=== PATIENT | male | born 1980 | race Caucasian/White ===

== ENCOUNTER 2019-03-05 14:09 | Observation (INO) | payer BC ==
[2019-03-05] MEDS ORDERED: LOPERAMIDE HCL 2 MG CAPSULE PO PRN (15:00)
[2019-03-05] MEDS ORDERED: ONDANSETRON 4 MG (ODT) TAB PO PRN (15:00)
[2019-03-05] MEDS ORDERED: ACETAMINOPHEN 325 MG TABLET PO PRN (15:00)
[2019-03-05] MEDS ORDERED: DIPHENHYDRAMINE 25 MG TAB/CAP PO PRN (15:00)
[2019-03-05] MEDS ORDERED: POLYETHYL GLY 3350 17 GM/DOSE PO PRN (15:00)
[2019-03-05 15:20] LABS: Absolute Lymphocytes (CBC) 1.4 K/uL (0.7-4.9); Basophils % 0.8 % (0-1.3); Hematocrit 48.2 % (39.6-49.0); MPV 9.3 fL (7.6-11.3); RBC Red Blood Cell Count 5.38 M/uL (4.33-5.43)
[2019-03-05] MEDS: PANTOPRAZOLE 40 MG INJ IV SCH ×2 (15:28→21:45)
[2019-03-05] MEDS: HYDROMORPHONE HCL 1 MG/ML INJ IV PRN ×4 (15:29→22:42)
[2019-03-05] MEDS: NACHLORIDE 0.45% 1,000 ML IV SCH (15:45)
[2019-03-05 16:01] LABS: ALT/SGPT 59 U/L (12-78); AST/SGOT 24 U/L (15-37); Albumin 4.3 g/dL (3.4-5.0); Alkaline Phosphatase 56 U/L (45-117); BUN Blood Urea Nitrogen 10 mg/dL (7-18); Bicarbonate 31 mmol/L (21-32); Bilirubin Direct 0.2 mg/dL (0-0.2); Bilirubin Total 0.7 mg/dL (0.2-1.0); Glucose Level 95 mg/dL (74-106); Magnesium 2.1 mg/dL (1.8-2.4); Phosphorus 3.9 mg/dL (2.5-4.9); Protein, Total 7.6 g/dL (6.4-8.2); Sodium Level 142 mmol/L (136-145)
[2019-03-05 16:17] LABS: Protime INR 0.97
--- NOTE | 2019-03-05 16:55 | RAD REPORT ---
EXAM DESCRIPTION: CTAbdomen Pelvis W Contrast - 03/05/2019 4:29 pm CLINICAL HISTORY: Abdominal pain. Severe Abdomen Pain COMPARISON: <Comparisons> TECHNIQUE: Biphasic CT imaging of the abdomen and pelvis was performed with 100 ml non-ionic IV cont rast. All CT scans are performed using dose optimization technique as appropriate and may include automated exposure control or mA/KV adjustment according to patient size. FINDINGS: The lung bases are clear. The liver, spleen, pancreas, adrenal glands and kidneys are within normal limits. 16 mm benign right renal cyst. No bowel obstruction, free air, free fluid or abscess. Small fat containing umbilical hernia. The viral endix is normal. No evidence of significant lymphadenopathy. No suspicious bony findings. IMPRESSION: No acute intra-abdominal or pelvic finding.
--- NOTE | 2019-03-05 17:00 | RAD REPORT ---
EXAM DESCRIPTION: RAD - Chest Pa And Lat (2 Views) - 03/05/2019 4:43 pm CLINICAL HISTORY: Abd pain Chest pain. COMPARISON: <Comparisons> FINDINGS: The lungs are clear. The heart is normal in size. No displaced fractures. IMPRESSION: No acute or concerning finding suspected.
[2019-03-05 17:55] LABS: Urine Appearance CLOUDY; Urine Blood NEGATIVE (NEG); Urine Color YELLOW; Urine Glucose NEGATIVE (NEG); Urine Protein NEGATIVE (NEG); Urine Specific Gravity 1.015 (1.005-1.030); Urine Urobilinogen 0.2 mg/dL (0.2-1.0)
[2019-03-05 18:14] LABS: Urine Microscopic Reflex NO UMIC
[2019-03-05 18:19] LABS: Urine Bilirubin 1+ (NEG)
[2019-03-05] MEDS ORDERED: ALPRAZOLAM 0.5 MG TABLET PO PRN (20:22)
[2019-03-05] MEDS: ONDANSETRON 4 MG/2 ML VIAL IV PRN (20:32)
[2019-03-05] MEDS ORDERED: AMPHETAMINE PO SCH (21:00)
[2019-03-05] MEDS ORDERED: DEXTROAMPHETAMINE PO SCH (21:00)
[2019-03-05] MEDS ORDERED: HOME MED 1 EA UNK (Alprazolam [Xanax] 1 MG) PO SCH (21:00)
[2019-03-05] MEDS: SODIUM CHLORIDE 0.9% 10ML INJ IV SCH (21:46)
[2019-03-06] MEDS: ONDANSETRON 4 MG/2 ML VIAL IV PRN ×3 (02:34→18:09)
[2019-03-06] MEDS: HYDROMORPHONE HCL 1 MG/ML INJ IV PRN ×7 (02:34→18:06)
[2019-03-06 05:55] LABS: Basophils % 0.9 % (0-1.3); Hematocrit 43.7 % (39.6-49.0); Lymphocytes % 34.9 % (15.3-44.8); MPV 9.2 fL (7.6-11.3)
--- NOTE | 2019-03-06 08:34 | RAD REPORT ---
EXAM DESCRIPTION: US - Abdomen Exam Limited - 03/06/2019 8:02 am CLINICAL HISTORY: GALL BLADDER AND LIVER. COMPARISON: Abdomen Pelvis W Contrast dated 03/05/2019 FINDINGS: The gallbladder demonstrates no gallstones. Mild sludge is noted in the gallbladder. No pe richolecystic fluid or gallbladder wall thickening. The common bile duct is normal measuring 2 mm. The liver demonstrates diffuse fatty liver. IMPRESSION: Mild gallbladder sludge seen. No biliary dilatation. Diffuse fatty liver.
[2019-03-06 08:40] LABS: Troponin I < 0.02 ng/mL (0.0-0.045)
[2019-03-06] MEDS: PANTOPRAZOLE 40 MG INJ IV SCH ×2 (08:48→20:35)
[2019-03-06] MEDS: SODIUM CHLORIDE 0.9% 10ML INJ IV SCH ×2 (08:57→20:37)
--- NOTE | 2019-03-06 10:41 | EKG ---
Test Date: 2019-03-05 Test Time: 15:49:44 Supervisor Film Processing: ABDIFATAH MEASUREMENT RESULTS: Intervals: Rate: 79 WI: 116 QRSD: 88 QT: 340 QTc: 389 [place]: P: 20 WI: 116 QRS: 17 T: -41 INTERPRETIVE STATEMENTS: Normal sinus rhythm T wave abnormality, consider inferolateral ischemia Abnormal ECG No previous ECG available for comparison Electronically Signed On 03-06-19 10:38:30 CDT by Pedro Fagan
--- NOTE | 2019-03-06 12:47 | P.PN ---
Subjective Date of Service: 03/06/19 Chief Complaint: EPIG PAIN CONTINUES Subjective: No new changes HE SAYS PAIN IS STILL THE SAME BUT DILAUDID HELPS. HE HAS EPIG PAIN WITHOUT RADIATION. HE HAS BEEN TAKING ETODOLAC FROM DR MCDUFFIE FOR TWO WEEKS. HE HAS NO N,V OR DIARRHEA. Review of Systems 10-point ROS is otherwise unremarkable Physical Examination - Vital Signs Temperature: 97.8 F Blood Pressure: 138/91 Pulse: 79 Respirations: 18 Pulse Ox (%): 96 - Physical Exam General: Alert, In no apparent distress HEENT: Atraumatic, PERRLA, EOMI Neck: Supple, JVD not distended Respiratory: Clear to auscultation bilaterally, Normal air movement Cardiovascular: Regular rate/rhythm, Normal S1 S2 Gastrointestinal: Normal bowel sounds, Soft and benign, Tenderness (EPIG AND ON PROMPTING HE IS TENDER ON RUQ ALSO.) Musculoskeletal: No tenderness Integumentary: No rashes Neurological: Normal speech, Normal tone, Normal affect Lymphatics: No axilla or inguinal lymphadenopathy - Studies Laboratory Data (last 24 hrs) 03/06/19 08:25: Troponin I < 0.02 03/06/19 05:22: Sodium 137, Potassium 4.0, BUN 11, Creatinine 0.97, Glucose 96, Magnesium 2.0 03/06/19 05:22: WBC 5.8, Hgb 15.1, Hct 43.7, Plt Count 197 03/05/19 15:06: PT 11.5, INR 0.97, APTT 30.4 03/05/19 15:06: Sodium 142, Potassium 4.0, BUN 10, Creatinine 0.88, Glucose 95, Phosphorus 3.9, Magnesium 2.1, Total Bilirubin 0.7, AST 24, ALT 59, Alkaline Phosphatase 56, Troponin I < 0.02 03/05/19 15:06: WBC 6.0, Hgb 17.0, Hct 48.2, Plt Count 229 Medications List Reviewed: Yes Assessment And Plan - Current Problems (Diagnosis) (1) Epigastric pain Current Visit: Yes Status: Acute Plan: THIS CAN BE FROM ETODOLAC. HECOULD HAVE ULCER. I CONSULTED DR. KRISHNAN. HE DID NOT GET BETTER ON IV BID PROTONIX. HE ALSO HAS GB SLUDGE AND SOME TENDERNESS. WILL ORDER HIDA SCAN BEFORE SURGICAL CONSULT. THIS PAIN DOES NOT SEEM CARDIAC (2) Abnormal EKG Current Visit: Yes Status: Acute Plan: NOT RELATED TO PAIN. HE HAS LOW RISK FOR CAD. CONSULT CARDIOLOGY FOR EKG. EKG HAS ANTEROLATERAL CHANGES. DR. DE LA ROSA SAYS ECHO IS GOOD AND HE WILL DO ST TEST LATER.
--- NOTE | 2019-03-06 14:47 | ECHO ---
HEIGHT: 5 ft 11 in WEIGHT: 240 lb 0 oz DATE OF STUDY: 03/06/[address]: Nico Mosher MD 2-DIMENSIONAL: YES M.MODE: YES DOPPLER: YES COLOR FLOW: YES TDS: NO PORTABLE: NO DEFINITY: NO BUBBLE STUDY: NO DIAGNOSIS: ABNORMAL ELECTROCARDIOGRAM CARDIAC HISTORY: CATHERIZATION: NO SURGERY: NO PROSTHETIC VALVE: NO PACEMAKER: NO MEASUREMENTS (cm) DIASTOLIC (NORMALS) SYSTOLIC (NORMALS) IVSd 0.8 (0.6-1.2) LA Diam 3.8 (1.9-4.0) LVEF 63% LVIDd 4.4 (3.5-5.7) LVIDs 2.9 (2.0-3.5) %FS 34% LVPWd 1.0 (0.6-1.2) Ao Diam 2.6 (2.0-3.7) 2 DIMENSIONAL ASSESSMENT: RIGHT ATRIUM: NORMAL LEFT ATRIUM: NORMAL RIGHT VENTRICLE: NORMAL LEFT VENTRICLE: NORMAL TRICUSPID VALVE: NORMAL MITRAL VALVE: NORMAL PULMONIC VALVE: NORMAL AORTIC VALVE: NORMAL PERICARDIAL EFFUSION: NONE AORTIC ROOT: NORMAL LEFT VENTRICULAR WALL MOTION: NORMAL. DOPPLER/COLOR FLOW: NORMAL. COMMENTS: NORMAL LEFT VENTRICULAR EJECTION FRACTION AND SIZE. NO WALL MOTION ABNORMALITIES. NO EFFUSION. TECHNOLOGIST: PAWAN GILLETTE
[2019-03-06] MEDS: NACHLORIDE 0.45% 1,000 ML IV SCH (18:48)
[2019-03-07 06:28] LABS: Absolute Lymphocytes (CBC) 1.5 K/uL (0.7-4.9); Basophils % 1.1 % (0-1.3); Lymphocytes % 29.1 % (15.3-44.8); MPV 9.1 fL (7.6-11.3); RBC Red Blood Cell Count 5.42 M/uL (4.33-5.43)
[2019-03-07 06:45] LABS: Magnesium 2.4 mg/dL (1.8-2.4); Potassium 4.5 mmol/L (3.5-5.1)
--- NOTE | 2019-03-07 08:37 | RAD REPORT ---
EXAM DESCRIPTION: NM - Hepatobiliary System W/ Ph - 03/07/2019 7:38 am CLINICAL HISTORY: Abdominal pain, abnormal ultrasound COMPARISON: Abdomen ultrasound March 06 TECHNIQUE: The patient was administered 6.5 mCi Tc99m Choletec. Imaging of the right upper quadrant was performed initially for up to 60 minutes. The patient was administered synthetic CCK over a slow 30 minute infusion. CIELO measurements were obtained of the gallbladder and an ejection fraction calcu lated. Synthetic CCK dosage was 2.1 mgm. FINDINGS: There is homogeneous uptake of radiopharmaceutical throughout the liver. There is no delay in visualization of the biliary tree or duodenum. Gallbladder visualizes within normal time limits. The calculated ejection fraction is 19% (>35% yessi l range). The patient reported no pain prior to the procedure and no symptoms during or subsequent to synthetic CCK infusion. IMPRESSION: Patent cystic duct and patent sphincter of Oddi. No delay in visualization of the gallbl adder, biliary tree, or duodenum. Ejection fraction is 19% (>35% normal range). Patient reported no pre-procedure pain, and no pain during or subsequent to synthetic CCK infusion.
[2019-03-07] MEDS: ACETAMIN/CAFFEINE/BUTALB TAB PO PRN ×2 (08:46→15:39)
[2019-03-07] MEDS: PANTOPRAZOLE 40 MG INJ IV SCH (08:47)
[2019-03-07] MEDS: SODIUM CHLORIDE 0.9% 10ML INJ IV SCH (08:47)
--- NOTE | 2019-03-07 09:31 | CON ---
Date of Consultation: 03/06/2019 The patient admitted on 03/05/[address] Mosher. I saw the patient on 03/06/2019. Reason For Consultation: Abnormal EKG. History Of Present Illness: Mr. Maxwell is a 38-year-old white male with known previous cardiac his tory. He has a history of ADD and anxiety. He takes Xanax, Adderall, and testosterone. He came in with abdominal pain mostly in the midepigastric region radiating to the right side of his abdomen. N o nausea or vomiting. No PND, orthopnea, pedal edema, palpitations, or syncope. No chest pain per s e. EKG showed what appeared to be inferolateral ischemia. Negative troponin. Negative BNP. Negati ve chest x-ray. He was slightly hypertensive at 130/91. Past Medical History: As stated above. Allergies: NONE. Review of Systems: Negative. Social History: Negative. Family History: Negative. Physical Examination: Vital Signs: Stable. Afebrile. HEENT: Negative. Neck: Supple with no bruit. Chest: Clear. Cardiac: Revealed a regular rhythm and rate. No murmurs, gallops, or rubs. Abdomen: Benign. Extremities: Revealed no clubbing, cyanosis, or edema. Diagnostic Data: All stated earlier. Impression And Plan: Abnormal EKG in a young man with abdominal pain, abnormal EKG. I agree with th e echocardiogram. I do not think his symptoms are cardiac, but with his abnormal EKG, I think we pam l see what the echo shows. He will need a stress test. Our stress test machine is broken. I am com fortable with him going home whenever Dr. Mosher is agreeable to that and we will arrange for an outpa tient stress test. If the echocardiogram shows any significant wall motion abnormalities, we will ch alex our decision. LACHELLE/ALAN Voice ID: [id number] Report ID: [id number]
[2019-03-07] MEDS ORDERED: Ringers Lactate 1,000 ML IV ONE (10:19)
--- NOTE | 2019-03-07 11:11 | PN ---
Mr. Maxwell's EKG shows negative T-waves in the inferior leads with a normal echocardiogram. We hav e the EKGs, most likely a normal variant. I do not think he has an acute coronary syndrome or any de finite evidence of coronary heart disease. An optional nuclear stress test as an outpatient could be done. There is no need to do it here right now while he is in the hospital. He is probably stable enough to be discharged. JOE/ALAN Voice ID: [id number] Report ID: [id number]
[2019-03-07] MEDS ORDERED: LIDOCAINE 1% MPF 2 ML AMPULE ONE (11:37)
[2019-03-07] MEDS ORDERED: PROPOFOL 200 MG/20 ML VIAL IV ONE (11:37)
--- NOTE | 2019-03-07 13:23 | OP ---
Surgeon: Jarrett Martins MD Procedure To Be Performed: Esophagogastroduodenoscopy. Indication For Procedure: Persistent epigastric pain. Plan For Anesthesia: Monitored anesthesia care. Complexity: Average. Technique: After obtaining informed consent from the patient and explaining risks and complications which include, but are not limited to bleeding, infection, perforation, and anesthesia complication, patient was placed in left lateral position and sedation was given. From then on, the scope was adva nced to the mouth and carefully guided up until the second portion of the duodenum. After the comple tion of the examination, the scope and equipment were withdrawn and procedure terminated in a safe ma nner. Findings: Esophagus: No gross lesion seen in the upper and mid esophagus. In the distal esophagus, there was evidence of grade A esophagitis. Z-line was irregular giving us suspicion of Mendoza's of around 1 to 2 cm in length. Biopsies were taken from this area. Stomach: The body of the stomach revealed mild patchy erythema. Biopsies taken. In the antrum, thr ee cratered gastric ulcers with clean base was visualized. Margin biopsies taken from these ulcers. The pylorus appeared normal. Duodenum: The bulb and second portion appeared normal. Complications: None. Tolerance To Anesthesia: Excellent. Postoperative Diagnosis: Esophagitis, rule out Mendoza; gastritis; and cratered gastric ulcers. Plan: 1.Await pathology results. 2.Oral PPI b.i.d. 3.We will add Carafate 4 times a day to the regimen. 4.To follow up in the GI Clinic in 1 to 2 weeks. 5.To avoid NSAIDs. 6.Avoid alcohol. 7.We will need repeat EGD in 6 to 8 weeks for followup. US/MODL Voice ID: [id number] Report ID: [id number]
[2019-03-07] MEDS ORDERED: SUCRALFATE 1 GM TABLET PO SCH (16:30)
--- NOTE | 2019-03-07 21:34 | P.DS ---
Admission Date: 03/05/19 Discharge Date: 03/07/19 Disposition: ROUTINE DISCHARGE Discharge Condition: FAIR Reason for Admission: EPIG PAIN CONTINUES - Problems (1) Epigastric pain Status: Acute (2) Abnormal EKG Status: Acute Brief History of Present Illness: MR. SIDDIQI HAS MULTIPLE ULCERS IN STOMACH FROM ETODOLAC LIKE I SUSPECTED. HE WILL GO HOME ON PROTONIX BID AND WILL QUIT ALL NSAIDS. HIS HIDA SCAN SHOW MILD LOW EF BUT MAY NOT NEED SURGERY PAIN IS EXPLAINED BY STOMACH ULCERS. HE WILL COME TO OFFICE IN A WEEK. Vital Signs/Physical Exam: Temp Pulse Resp BP Pulse Ox 97.8 F 82 17 133/82 92 03/07/19 16:00 03/07/19 16:00 03/07/19 16:00 03/07/19 16:00 03/07/19 16:00 Laboratory Data at Discharge: WBC 5.3 K/uL (4.3-10.9) 03/07/19 05:50 Hgb 16.9 g/dL (13.6-17.9) 03/07/19 05:50 Hct 49.0 % (39.6-49.0) 03/07/19 05:50 Plt Count 212 K/uL (152-406) 03/07/19 05:50 PT 11.5 SECONDS (9.5-12.5) 03/05/19 15:06 INR 0.97 03/05/19 15:06 APTT 30.4 SECONDS (24.3-36.9) 03/05/19 15:06 Sodium 139 mmol/L (136-145) 03/07/19 05:50 Potassium 4.5 mmol/L (3.5-5.1) 03/07/19 05:50 BUN 11 mg/dL (7-18) 03/07/19 05:50 Creatinine 1.01 mg/dL (0.55-1.3) 03/07/19 05:50 Glucose 87 mg/dL (74-106) 03/07/19 05:50 Phosphorus 3.9 mg/dL (2.5-4.9) 03/05/19 15:06 Magnesium 2.4 mg/dL (1.8-2.4) 03/07/19 05:50 Total Bilirubin 0.7 mg/dL (0.2-1.0) 03/05/19 15:06 AST 24 U/L (15-37) 03/05/19 15:06 ALT 59 U/L (12-78) 03/05/19 15:06 Alkaline Phosphatase 56 U/L (45-117) 03/05/19 15:06 Troponin I < 0.02 ng/mL (0.0-0.045) 03/06/19 08:25 Home Medications: Alprazolam [Xanax] 1 mg PO PRN 03/05/19 Dextroamphetamine/Amphetamine [Adderall 15 mg Tablet] 15 mg PO BID 03/05/19 Testosterone Cypionate [Depo-Testosterone] 1 mg SQ ONCE 03/05/19 Pantoprazole Sodium [Protonix] 40 mg PO BID #180 tablet. 03/07/19 New Medications: Pantoprazole Sodium [Protonix] 40 mg PO BID #180 tablet.dr Followup: Nico Mosher MD [Primary Care Provider] -
== END 2019-03-07 17:31 | disposition home or self-care (01) ==
LOC: 2ND 14:46
PROVIDERS: ADMIT Internal Medicine; ATTEND Internal Medicine
PROC: 0DB58ZX Excision of Esophagus, Via Natural or Artificial Opening Endoscopic, Diagnostic (ICD-10-PCS; principal; 2019-03-05)
PROC: 0DB68ZX Excision of Stomach, Via Natural or Artificial Opening Endoscopic, Diagnostic (ICD-10-PCS; 2019-03-05)
DX: K29.50 Unspecified chronic gastritis without bleeding (principal); K20.9 Esophagitis, unspecified; K25.9 Gastric ulcer, unspecified as acute or chronic, without hemorrhage or perforation; K82.8 Other specified diseases of gallbladder; K76.0 Fatty (change of) liver, not elsewhere classified; R94.31 Abnormal electrocardiogram [ECG] [EKG]; F98.8 Other specified behavioral and emotional disorders with onset usually occurring in childhood and adolescence; F41.9 Anxiety disorder, unspecified; Z79.899 Other long term (current) drug therapy
CPT/HCPCS: 36415; 71046; 74177; 76705; 78227; 80048; 80076; 81003; 82043; 82570; 82607; 83036; 83735; 84100; 84443; 84484; 85025; 85610; 85730; 88305; 88312; 93005; 93306; A9537; C9113; G0378; J1170; J2001; J2405; J2704; J2805; Q9967